=== PATIENT | male | born 1945 | race Caucasian/White ===

== ENCOUNTER 2022-06-10 01:06 | Emergency (ER) | payer MEDICARE ==
[2022-06-10 01:31] LABS: BASOPHIL 0.3 % (0-2); EOSINOPHIL 1.1 % (0-7); HCT 44.5 % (42.0-52.0); HGB 15.3 g/dl (13.2-18.0); LYMPHOCYTE 29.8 % (15-48); MCH 32.1 pg (25.0-31.0); MCHC 34.4 g/dL (32.0-36.0); MCV 93.3 fL (78.0-100.0); MONOCYTE 15.3 % (0-12); MPV 10.4 fL (6.0-9.5); NEUTROPHIL 53.3 % (41-80); NRBC 0; PLT 175 K/uL (150-400); RBC 4.77 M/uL (4.70-6.00); RDW 13.9 % (11.5-14.0); WBC 9.5 K/uL (4.0-10.5)
[2022-06-10 01:42] LABS: INR 1.06 (0.9-1.2); PROTHROMBIN TIME 13.5 SECONDS (11.9-13.9); PTT 28.9 SECONDS (24.9-34.6)
[2022-06-10 01:54] LABS: ALBUMIN 4.1 g/dL (3.4-5.0); BILIRUBIN - TOTAL 0.7 mg/dL (0.2-1.0); CREATININE 0.8 mg/dL (0.67-1.17); GLOBULIN (CALCULATION) 3.1 g/dL; POTASSIUM 3.4 mmol/L (3.5-5.1); TOTAL PROTEIN 7.2 g/dL (6.4-8.2)
[2022-06-10 02:07] LABS: CORONAVIRUS 2019 SARS-COV-2 NEGATIVE (NEGATIVE); INFLUENZA A NAA NEGATIVE (NEGATIVE)
== END 2022-06-10 02:25 | disposition other institution (70) ==
LOC: FER 01:06
PROVIDERS: Internal Medicine
DX: I20.0 Unstable angina (principal); I10 Essential (primary) hypertension; Z20.822 Contact with and (suspected) exposure to COVID-19
CPT/HCPCS: 36415; 71045; 80053; 83880; 84484; 85025; 85610; 85730; 93005; J1644; J7030; U0002